=== PATIENT | male | born 1960 | race Caucasian/White ===

== ENCOUNTER 2025-07-15 09:45 | Observation (INO) ==
--- NOTE | 2025-07-15 10:49 | Emergency Department Note ---
Impression & Plan Abdominal pain, Gastroenteritis, Hypokalemia, Vomiting ED Provider Note NAME: NEHAL BROWN AGE: 64 SEX: M : 1960 ARRIVES VIA: Walk-In INFORMANT: Patient ED PROVIDER(S): Noel Noonan DO CHIEF COMPLAINT: Nausea, vomiting, and diarrhea HPI: Patient is a 64-year-old male who presents ER for symptoms that started 3 days ago. It started with nausea, vomiting, and diarrhea. Diarrhea has abated now he has persistent nausea and vomiting. He admits to diffuse myalgias and arthralgias. Denies any headache or change in vision. No chest pain or shortness of breath. No dysuria, urgency or frequency. No other exacerbating or remitting factors. is present bedside and provides additional history and notes that he has had a colon resection previously. No other belly surgeries. They are concerned for anaplasmosis [place] but no recent tick bites. ADDITIONAL HISTORY OBTAINED: Per HPI Chronic Medical/Social Conditions Affecting Care: Per HPI PAST MEDICAL HISTORY:See Below PAST SURGICAL HISTORY:See Below FAMILY HISTORY:See Below SOCIAL HISTORY:See Below HOME MEDICATIONS:See Below ALLERGIES:See Below VITALS:See Below PHYSICAL EXAMINATION: GENERAL: Sitting up in bed, alert, well appearing, well nourished, no distress, non-toxic EYE EXAM: normal conjunctiva. OROPHARYNX: no exudate, no erythema, lips, buccal mucosa, and tongue normal and mucous membranes are moist NECK: supple, no nuchal rigidity, no adenopathy, non-tender LUNGS: Clear to auscultation. Normal chest wall mechanics HEART: no murmurs, S1 normal and S2 normal ABDOMEN: abdomen soft, non-tender, normo-active bowel sounds, no masses, no rebound or guarding. BACK: Back is symmetrical on inspection and there is no deformity, no midline tenderness, no CVA tenderness. SKIN: no rashes and no bruising UPPER EXTREMITIES: upper extremities are grossly normal. LOWER EXTREMITIES: No pitting edema. NEURO EXAM: Normal sensorium, cranial nerves II-XII grossly intact, normal speech, no gross weakness of arms, no gross weakness of legs. MEDICAL DECISION MAKING: Patient is a six 4-year-old male who presents to the ER for nausea vomiting and diarrhea. IV was established and blood work was obtained. Labs show mild leukocytosis 11,000. BMP with a hyponatremia 133 and hypokalemia 2.8 likely consistent with vomiting/diarrhea. T. bili slightly up at 2.5. LFTs and lipase was unremarkable. UA with ketones suggesting dehydration anaplasmosis and Lyme was obtained and negative. CT abdomen pelvis showed no acute pathology with the exception of inflammation of the GE junction. He was given a GI cocktail. He was given IV fluids, IV Zofran, IV Reglan and IV Phenergan and still had a significant amount of nausea. Updated bedside and discussed the case with the hospitalist for further evaluation management treatment. Consults/Care Managements Discussions: Per [facility] Triage Nursing notes reviewed. Limited review of prior medical records performed Vital Signs: reviewed and remarkable for HTN Differential diagnosis: Differential diagnoses includes but is not limited to gastritis, peptic ulcer disease, GERD, gallbladder disease, pancreatitis, small bowel obstruction, appendicitis, diverticulitis, hernia, urinary tract infection, torsion, perforation, trauma, infectious. ER treatment provided: See below Diagnostics interpreted by me include EKG and cardiac monitoring as listed below: -Cardiac Monitoring: An order was placed for continuous cardiac monitoring. The monitor shows a rate of 70 with sinus rhythm. -ECG: Sinus rhythm rate of 75 Normal axis No PVCs QTc 451 -Laboratory studies:Interpreted by me as stated above in MDM and shown below. Imaging studies: Xrays: As interpreted by me:none CTs show: CT abdomen pelvis per my preliminary interpretation shows no obvious bowel obstruction CT of the pelvis per radiology shows no acute pathology Procedures:none Critical Care: None Past Med/Surg History Problem List (Updated 07/15/25 @ 16:36 by Noel Noonan DO) Vomiting (Acute) Hypokalemia (Acute) Abdominal pain (Acute) Gastroenteritis (Acute) Social History Smoking Status: Former smoker Second Hand Exposure: No; Do You Dip or Chew Tobacco: No; Hx Alcohol Use: Yes Alcohol type: beer and wine Hx Substance Use: No Bending Shed Worker Required: No Beliefs That Will Affect Care: None Current Living Situation: Spouse Feels Safe at Home: Yes Assistive Devices: Glasses and Hearing Aid - Bilateral Allergies Allergies Allergy/AdvReac Type Severity Reaction Status Date / Time Sulfa (Sulfonamide Allergy Severe Flu-Like Unverified 07/15/25 11:45 Antibiotics) symptoms Home Meds Home Medications Medication Instructions Recorded Confirmed atorvastatin 20 mg tablet 20 mg PO DAILY 07/15/25 07/15/25 duloxetine 30 mg capsule,delayed 30 mg PO DAILY 07/15/25 07/15/25 release hydrochlorothiazide 25 mg tablet 25 mg PO DAILY 07/15/25 07/15/25 losartan 50 mg tablet 50 mg PO DAILY 07/15/25 07/15/25 metoprolol succinate 50 mg 50 mg PO DAILY 07/15/25 07/15/25 tablet,extended release 24 hr spironolactone 25 mg tablet 25 mg PO DAILY 07/15/25 07/15/25 Results & Data (ED) Vital Signs Vital Signs - 24 hr 07/15/25 09:55 07/15/25 11:00 07/15/25 11:00 Temperature 36.2 C L Temperature Source Temporal Artery Scan Pulse Rate 77 86 Pulse Rate [Apical] 86 Pulse Rate from SpO2 Sensor Pulse Rhythm Regular Pulse Rhythm [Apical] Regular Respiratory Rate 18 16 16 Respiratory Effort / Characteristics Non-Labored Non-Labored Spontaneous Respiratory Depth Normal Normal Respiratory Pattern Regular Blood Pressure 181/98 H Blood Pressure [Left Arm] 143/92 H Blood Pressure Mean 125 Blood Pressure Mean [Left Arm] 109 Blood Pressure Position [Left Arm] Semi-fowlers Pulse Oximetry 100 100 100 Oxygen Delivery Method Room Air Room Air Room Air Sepsis Recent Fever Within 48 Hours No Sepsis New/Unexplained Change in Mental Status N/A Sepsis Action Taken by Nursing No Action Required 07/15/25 11:11 07/15/25 11:30 07/15/25 12:00 Temperature Temperature Source Pulse Rate 80 75 82 Pulse Rate [Apical] Pulse Rate from SpO2 Sensor 82 Pulse Rhythm Pulse Rhythm [Apical] Respiratory Rate 11 L 21 Respiratory Effort / Characteristics Respiratory Depth Respiratory Pattern Blood Pressure 171/95 H 171/93 H Blood Pressure [Left Arm] Blood Pressure Mean 134 135 Blood Pressure Mean [Left Arm] Blood Pressure Position [Left Arm] Pulse Oximetry 100 100 Oxygen Delivery Method Sepsis Recent Fever Within 48 Hours Sepsis New/Unexplained Change in Mental Status Sepsis Action Taken by Nursing 07/15/25 12:30 Temperature Temperature Source Pulse Rate 72 Pulse Rate [Apical] Pulse Rate from SpO2 Sensor 74 Pulse Rhythm Pulse Rhythm [Apical] Respiratory Rate 13 Respiratory Effort / Characteristics Respiratory Depth Respiratory Pattern Blood Pressure 166/92 H Blood Pressure [Left Arm] Blood Pressure Mean 122 Blood Pressure Mean [Left Arm] Blood Pressure Position [Left Arm] Pulse Oximetry 100 Oxygen Delivery Method Sepsis Recent Fever Within 48 Hours Sepsis New/Unexplained Change in Mental Status Sepsis Action Taken by Nursing Laboratory Data 07/15/25 10:58 07/15/25 10:58 Lab Results 07/15/25 Range/Units 10:58 WBC 11.87 H (4.8-10.8) K/ul RBC 4.45 L (4.70-6.10) M/uL Hgb 15.2 (14.0-18.0) g/dl POC Hgb 15.0 (14.0-18.0) g/dl Hct 41.0 L (42.0-52.0) % POC Hct 44 (42-52) % MCV 92.1 (80.0-100.0) fL MCH 34.2 H (25.0-34.0) pg MCHC 37.1 H (32.0-36.0) g/dL RDW Std Deviation 41.8 (36.4-46.3) fL RDW Coeff of Nery 12.3 (11.5-14.5) % Plt Count 261 (130-400) K/uL MPV 8.4 L (9.4-12.4) fL Immature Gran % (Auto) 0.5 % Neut % (Auto) 86.9 % Lymph % (Auto) 6.4 % Russell % (Auto) 5.9 % Eos % (Auto) 0.0 % Baso % (Auto) 0.3 % Neut # (Auto) 10.32 H (1.40-6.50) K/uL Lymph # (Auto) 0.76 L (1.20-3.40) K/uL Russell # (Auto) 0.70 H (0.11-0.59) K/uL Eos # (Auto) 0.00 (0.00-0.50) K/uL Baso # (Auto) 0.03 (0.00-0.20) K/uL Immature Gran # (Auto) 0.06 (0.01-0.20) K/uL POC Sodium 134 L (135-144) mmol/L Sodium 133 L (136-145) mmol/L POC Potassium 2.9 L (3.3-5.0) mmol/L Potassium 2.8 L (3.5-5.1) mmol/L POC Chloride 95 L (101-112) mmol/L Chloride 95 L (98-107) mmol/L Carbon Dioxide 25 (21-32) mmol/L POC Total CO2 22 L (24-31) mmol/L Anion Gap 13 H (3-11) POC Anion Gap 21.0 (16-25) mmol/L POC BUN 21 H (7-18) mg/dl BUN 23 (6-23) mg/dl Creatinine 1.22 (0.6-1.4) mg/dl POC Creatinine 1.2 (0.6-1.3) mg/dl Est Cr Clr Drug Dosing 63.4 ml/min eGFR 65.39 BUN/Creatinine Ratio 18.9 (10-20) Glucose 146 H (70-99(Fasting)) mg/dl POC Glucose (other) 144 H (70-99) mg/dl Calcium 9.5 (8.6-10.3) mg/dl POC Ioniz Calcium Zuhair 1.11 L (1.12-1.32) mmol/l Total Bilirubin 2.5 H (0.2-1.0) mg/dl AST 17 (13-39) U/L ALT 20 (7-52) U/L Alkaline Phosphatase 49 (34-104) U/L Total Protein 8.2 (6.0-8.3) gm/dl Albumin 4.6 (3.4-5.0) gm/dl Globulin 3.6 (2.5-4.0) gm/dl Albumin/Globulin Ratio 1.3 (0.9-2) Lipase 45 (11-82) U/L Urine Color Yellow Urine Appearance Clear (Clear) Urine pH 6.5 (4.5-7.5) Ur Specific [place] 1.025 (1.000-1.030) Urine Protein 2+ H (Negative) Urine Glucose (UA) Negative (Negative) Urine Ketones 3+ H (Negative) Urine Blood Negative (Negative) Urine Nitrite Negative (Negative) Urine Bilirubin 1+ H (Negative) Urine Urobilinogen Negative (Negative) Ur Leukocyte Esterase Negative (Negative) Urine WBC (Auto) 0-5 (0-5) /hpf Urine RBC (Auto) 0-2 (0-2) /hpf U Hyaline Cast (Auto) 3-5 H (0-2) /lpf U Epithel Cells (Auto) 0-2 (0-2) /hpf Urine Bacteria (Auto) None Seen (None Seen) Urine Mucus Present A (None Prsent) Urine Comment Anaplasma Smear See Comment Babesia Smear See Comment Lyme Disease Screen Negative (Negative) Administered Medications Sodium Chloride (Nss) 1,000 mls @ 80 mls/hr IV .[id number] AMNA Stop: 07/18/25 14:27 Last Admin: 07/15/25 15:43 Dose: 80 mls/hr Documented By: KHADAR Prochlorperazine 5 mg/ Syringe 5 mls @ 5 mls/min IV Q6H PRN PRN Reason: Nausea And Vomiting Stop: 08/14/25 16:05 Last Admin: 07/15/25 16:27 Dose: 5 mls/min Documented By: KHADAR Ondansetron HCl (Ondansetron Inj 2 Mg/Ml 2 Ml Vial) 4 mg IV Q6H PRN PRN Reason: Nausea Stop: 08/14/25 14:27 Last Admin: 07/15/25 14:35 Dose: 4 mg Documented By: REYNALDO Discontinued Medications Al Hydrox/Mg Hydrox/Simethicone (Aluminum/Magnesium Susp 30 Ml Udc) 30 ml PO NOW STA Stop: 07/15/25 12:27 Last Admin: 07/15/25 12:48 Dose: 30 ml Documented By: ZARI Sodium Chloride (Nss) 1,000 mls @ 999 mls/hr IV .Q1H1M AMNA Stop: 07/15/25 13:00 Last Infusion: 07/15/25 13:15 Dose: Infused Documented By: Admin: 07/15/25 11:58 Dose: 999 mls/hr Documented By: Infusion: 07/15/25 11:58 Dose: Infused Documented By: Admin: 07/15/25 10:59 Dose: 999 mls/hr Documented By: ZARI Promethazine HCl (Phenergan) 25 mg in 51 mls @ 204 mls/hr IV NOW STA Stop: 07/15/25 12:40 Last Infusion: 07/15/25 13:00 Dose: Infused Documented By: Admin: 07/15/25 12:45 Dose: 204 mls/hr Documented By: ZARI Potassium Chloride (K Gregg / Wtr) 10 meq in 100 mls @ 100 mls/hr IV Q1H AMNA Stop: 07/15/25 14:29 Last Admin: 07/15/25 15:47 Dose: Not Given Documented By: Infusion: 07/15/25 14:48 Dose: Infused Documented By: Admin: 07/15/25 13:08 Dose: 100 mls/hr Documented By: ZARI Ioversol (Optiray 320 100ml) 94 ml IV ONCE ONE Stop: 07/15/25 11:16 Last Admin: 07/15/25 11:16 Dose: 94 ml Documented By: NATALYA Metoclopramide HCl (Metoclopramide Hcl Inj 5 Mg/Ml 2 Ml Vial) 10 mg IV NOW STA Stop: 07/15/25 12:01 Last Admin: 07/15/25 12:04 Dose: 10 mg Documented By: ZARI Ondansetron HCl (Ondansetron Inj 2 Mg/Ml 2 Ml Vial) 4 mg IV NOW STA Stop: 07/15/25 10:47 Last Admin: 07/15/25 10:58 Dose: 4 mg Documented By: ZARI Potassium Chloride (Potassium Chloride Crtab 20 Meq Tabcr) 40 meq PO NOW STA Stop: 07/15/25 14:29 Last Admin: 07/15/25 14:47 Dose: 40 meq Documented By: KHADAR Imaging Data Radiologist's Impression: Abdomen/Pelvis CT 07/15/25 10:46 CT SCAN OF THE ABDOMEN AND PELVIS WITH IV CONTRAST CLINICAL HISTORY: Abdominal pain. COMPARISON STUDY: None. TECHNIQUE: Following the IV administration of 94 cc of Optiray 320, CT scan of the abdomen and pelvis is performed from the lung bases to the proximal femora. Images are reviewed in the axial, sagittal, and coronal planes. IV contrast was administered without complication. A dose lowering technique was utilized adhering to the principles of ALARA. CT DOSE: 1149.91 mGy.cm FINDINGS: Visualized portions of the lung bases are unremarkable. There is mild circumferential wall thickening of the distal esophagus with minimal adjacent stranding. No pneumatosis, free air or portal venous gas is present. There are no suspicious hepatic lesions. There is no biliary or pancreatic ductal dilatation. A few subcentimeter bilateral renal lesions are too small to characterize. There is no hydronephrosis. Spleen, adrenal glands and pancreas are unremarkable. Postoperative findings consistent with sigmoid resection are noted. A lobular outpouching of the sigmoid colon is likely postsurgical. This is related to the anastomosis. The prostate is surgically absent. Bladder wall thickening is noted. There is no evidence for a bowel obstruction. The appendix is normal. IMPRESSION: 1. Circumferential wall thickening of the distal esophagus with mild adjacent stranding. This favors esophagitis. 2. No bowel obstruction. No bowel wall thickening. Normal appendix. Status post sigmoid resection. 3. Bladder wall thickening. This is likely chronic although could be correlated with urinalysis to exclude cystitis. ACT 112: Negative or not required by law. Electronically signed by: Rio Denson M.D. 07/15/2025 11:57 AM Discharge Plan Visit Data Chief Complaint: Nausea Stated Complaint: SEVERE NAUSEA, DEHYDRATION ED Provider: Noel Noonan Discharge Problem: Abdominal pain, Gastroenteritis, Hypokalemia, Vomiting Patient Disposition: Admitted As Inpatient Condition: Fair Discharge Instructions Interventions: ED Discharge Assessment Last Done: 07/15/25 13:42 Discharge Problem: Abdominal pain Qualifiers: Abdominal location: unspecified location Qualified Code(s): R10.9 - Unspecified abdominal pain Vomiting Qualifiers: Vomiting type: unspecified Nausea presence: unspecified Qualified Code(s): R 11.10 - Vomiting, unspecified
[2025-07-15] MEDS: ONDANSETRON INJ 2 MG/ML 2 ML VIAL IV STA (10:58)
[2025-07-15] MEDS: SODIUM CHLORIDE 0.9% 1,000 ML IV SCH ×2 (10:59→15:43)
[2025-07-15] MEDS: OPTIRAY 320 100ml IV ONE (11:16)
[2025-07-15 11:24] LABS: Appearance Urine Clear (Clear); Glucose Urine UA Negative (Negative); Hematocrit (blood only) 41.0 % (42.0-52.0); Hemoglobin 15.2 g/dl (14.0-18.0); Immature Granulocytes # (auto) 0.06 K/uL (0.01-0.20); Immature Granulocytes % (auto) 0.5 %; Mean Corpuscular Hemoglobin 34.2 pg (25.0-34.0); Mean Corpuscular Volume 92.1 fL (80.0-100.0); Platelet Count 261 K/uL (130-400); RDW Standard Deviation 41.8 fL (36.4-46.3); Red Blood Count 4.45 M/uL (4.70-6.10); White Blood Count 11.87 K/ul (4.8-10.8)
[2025-07-15 11:41] LABS: Alanine Aminotransferase 20.0 U/L (7-52); Albumin Globulin Ratio 1.3 (0.9-2); Alkaline Phosphatase 49.0 U/L (34-104); Anion Gap 13.0 (3-11); Bilirubin,Total 2.5 mg/dl (0.2-1.0); Blood Urea Nitrogen 23.0 mg/dl (6-23); Calcium 9.5 mg/dl (8.6-10.3); Carbon Dioxide 25.0 mmol/L (21-32); Chloride 95.0 mmol/L (98-107); Creatinine Clr Calc Pharmacy 63.4 ml/min; Globulin 3.6 gm/dl (2.5-4.0); Glucose 146.0 mg/dl (70-99(Fasting)); Lipase 45.0 U/L (11-82); Potassium 2.8 mmol/L (3.5-5.1); Sodium 133.0 mmol/L (136-145); Total Protein 8.2 gm/dl (6.0-8.3)
[2025-07-15 11:46] LABS: Bacteria Urine Automated None Seen (None Seen); Epithelial Cell Urine Auto 0-2 /hpf (0-2); RBC Urine Automated 0-2 /hpf (0-2); WBC Urine Automated 0-5 /hpf (0-5)
--- NOTE | 2025-07-15 12:00 | CT Scan Report ---
CT SCAN OF THE ABDOMEN AND PELVIS WITH IV CONTRAST CLINICAL HISTORY: Abdominal pain. COMPARISON STUDY: None. TECHNIQUE: Following the IV administration of 94 cc of Optiray 320, CT scan of the abdomen and pelvi s is performed from the lung bases to the proximal femora. Images are reviewed in the axial, sagittal , and coronal planes. IV contrast was administered without complication. A dose lowering technique wa s utilized adhering to the principles of ALARA. CT DOSE: 1149.91 mGy.cm FINDINGS: Visualized portions of the lung bases are unremarkable. There is mild circumferential wall thickening of the distal esophagus with minimal adjacent stranding. No pneumatosis, free air or tatiana l venous gas is present. There are no suspicious hepatic lesions. There is no biliary or pancreatic d uctal dilatation. A few subcentimeter bilateral renal lesions are too small to characterize. There is no hydronephrosis. Spleen, adrenal glands and pancreas are unremarkable. Postoperative findings cons istent with sigmoid resection are noted. A lobular outpouching of the sigmoid colon is likely postsur gical. This is related to the anastomosis. The prostate is surgically absent. Bladder wall thickening is noted. There is no evidence for a bowel obstruction. The appendix is normal. IMPRESSION: 1. Circumferential wall thickening of the distal esophagus with mild adjacent stranding. This favors esophagitis. 2. No bowel obstruction. No bowel wall thickening. Normal appendix. Status post sigmoid resection. 3. Bladder wall thickening. This is likely chronic although could be correlated with urinalysis to ex clude cystitis. ACT 112: Negative or not required by law. Electronically signed by: Rio Denson M.D. 07/15/2025 11:57 AM
[2025-07-15] MEDS: METOCLOPRAMIDE HCL INJ 5 MG/ML 2 ML VIAL IV STA (12:04)
[2025-07-15] MEDS: PROMETHAZINE 25 MG/51 ML BAG IV STA (12:45)
[2025-07-15] MEDS: ALUMINUM/MAGNESIUM SUSP 30 ML UDC PO STA (12:48)
[2025-07-15] MEDS: POTASSIUM CHLORIDE / WTR 10 MEQ/100 ML PLCT IV SCH (13:08)
--- NOTE | 2025-07-15 14:00 | History & Physical Report ---
Date of Service July 15, 2025 Assessment & Plan (1) Gastroenteritis: Plan 64M with PMH HTN HLD who presents with N/V/D x 2 days #N/V/D -This is consistent with viral gastroenteritis -CT AP unrevealing other than esophagitis secondary to emesis -Diarrhea resolved -Anaplasmosis neg Plan -Symptomatic management with zofran -mIVF for today -Clear liquid diet for today. advance as tolerated -Follow electrolytes as below -Anticipate DC home tomorrow if feeling better #Hypokalemia -K 2.9 -Secondary to N/V, poor po intake in setting of hctz use -Given 20 mEQ K in ED Plan -Give another 40 KCl now -Hold home HCTZ -Check K and Mg in AM #HTN -Continue home aldactone and losartan, should also help with hypokalemia -COntinue home Toprol -HOlding hctz as above #HLD -COntinue statin therapy History of Present Illness Chief Complaint: N/V/D Primary Care Provider: Yvon Chauhan MD Mr. Perry is a pleasant 64M with PMH including HTN HLD who presents to ED with N/V/D. symptoms started two days ago. He was in his usual state of health prior to symptom onset. He has had persistent nausea along with multiple episodes of non bloody emesis. He had approx 5 loose non bloody bowel movements on sunday. Diarrhea has since resolved. Endorsing mild epigastric pain as well. dull and constant. No similar symptoms in the past. no sick contacts or recent travel. He is accompanied by his who feels fine. He has no other complaints. Patient denies F/C, CP, palpitations, SOB, dyspnea. His had similar symptoms a few years ago and attributed it to anaplasmosis infection. ED vitals stable Labs significant for mild leukocytosis of 11.8, K 2.9, Na 133 CT AP showing esophagitis Allergies Allergy/AdvReac Type Severity Reaction Status Date / Time Sulfa (Sulfonamide Allergy Severe Flu-Like Unverified 07/15/25 11:45 Antibiotics) symptoms Home Medications Medication Instructions Recorded Confirmed Type atorvastatin 20 mg tablet 20 mg PO DAILY 07/15/25 07/15/25 History duloxetine 30 mg capsule,delayed 30 mg PO DAILY 07/15/25 07/15/25 History release hydrochlorothiazide 25 mg tablet 25 mg PO DAILY 07/15/25 07/15/25 History losartan 50 mg tablet 50 mg PO DAILY 07/15/25 07/15/25 History metoprolol succinate 50 mg 50 mg PO DAILY 07/15/25 07/15/25 History tablet,extended release 24 hr spironolactone 25 mg tablet 25 mg PO DAILY 07/15/25 07/15/25 History Past Med/Surg History Problem List (Updated 07/15/25 @ 13:53 by Akash Cazares DO) Gastroenteritis Social History Smoking Status: Never smoker Feels Safe at Home: Yes Review of Systems Review of Systems: Constitutional: No Weight Change, No Fever, No Chills, No Night Sweats, No Fatigue, No Malaise ENT/Mouth: No Hearing Changes, No Ear Pain, No Nasal Congestion, No Sinus Pain, No Hoarseness, No sore throat, No Rhinorrhea, No Swallowing Difficulty Eyes: No Eye Pain, No Swelling, No Redness, No Foreign Body, No Discharge, No Vision Changes Cardiovascular: No Chest Pain, No SOB, No PND, No Dyspnea on Exertion, No Orthopnea, No Claudication, No Edema, No Palpitations Respiratory: No Cough, No Sputum, No Wheezing, No Smoke Exposure, No Dyspnea Gastrointestinal: As per HPI Genitourinary: No Dysmenorrhea, No DUB, No Dyspareunia, No Dysuria, No Urinary Frequency, No Hematuria, No Urinary Incontinence, No Urgency, No Flank Pain, No Urinary Flow Changes, No Hesitancy Musculoskeletal: No Arthralgias, No Myalgias, No Joint Swelling, No Joint Stiffness, No Back Pain, No Neck Pain, No Injury History Skin: No Skin Lesions, No Pruritis, No Hair Changes, No Breast/Skin Changes, No Nipple Discharge Neuro: No Weakness, No Numbness, No Paresthesias, No Loss of Consciousness, No Syncope, No Dizziness, No Headache, No Coordination Changes, No Recent Falls Psych: No Anxiety/Panic, No Depression, No Insomnia, No Personality Changes, No Delusions, No Rumination, No SI/HI/AH/VH, No Social Issues, No Memory Changes, No Violence/Abuse Hx., No Eating Concerns Heme/Lymph: No Bruising, No Bleeding, No Transfusions History, No Lymphadenopathy Endocrine: No Polyuria, No Polydipsia, No Temperature Intolerance Physical Exam Physical Exam: Vitals and labs reviewed General: Well appearing, NAD HEENT: EOMI, PERRLA Neck: Supple Cardiac: RRR no rubs gallops or murmurs Lungs: CTA no rhonchi wheezing or rales Abd: S NT ND BS positive : Defferred MSK: Full ROM. No obvious deformities Ext: No Edema cyanosis Skin: Warm, Dry Neuro: AOx3 No focal deficits. Psych: Normal Mood Results & Data Results & Data Vital Signs (Past 12 Hours) Vital Signs Temp Pulse Pulse Resp BP BP Pulse Ox 07/15/25 13:42 07/15/25 13:30 83 16 163/93 H 100 07/15/25 13:08 87 22 157/85 H 99 07/15/25 12:30 72 13 166/92 H 100 07/15/25 12:00 82 21 171/93 H 100 07/15/25 11:30 75 11 L 171/95 H 100 07/15/25 11:11 80 07/15/25 11:00 86 16 100 07/15/25 11:00 86 16 143/92 H 100 07/15/25 09:55 36.2 C L 77 18 181/98 H 100 O2 Del Method 07/15/25 13:42 Room Air 07/15/25 13:30 07/15/25 13:08 07/15/25 12:30 07/15/25 12:00 07/15/25 11:30 07/15/25 11:11 07/15/25 11:00 Room Air 07/15/25 11:00 Room Air 07/15/25 09:55 Room Air Laboratory Results Abnormal lab results 07/15/25 Range/Units 10:58 WBC 11.87 H (4.8-10.8) K/ul RBC 4.45 L (4.70-6.10) M/uL Hct 41.0 L (42.0-52.0) % MCH 34.2 H (25.0-34.0) pg MCHC 37.1 H (32.0-36.0) g/dL MPV 8.4 L (9.4-12.4) fL Neut # (Auto) 10.32 H (1.40-6.50) K/uL Lymph # (Auto) 0.76 L (1.20-3.40) K/uL Tucker # (Auto) 0.70 H (0.11-0.59) K/uL POC Sodium 134 L (135-144) mmol/L Sodium 133 L (136-145) mmol/L POC Potassium 2.9 L (3.3-5.0) mmol/L Potassium 2.8 L (3.5-5.1) mmol/L POC Chloride 95 L (101-112) mmol/L Chloride 95 L (98-107) mmol/L POC Total CO2 22 L (24-31) mmol/L Anion Gap 13 H (3-11) POC BUN 21 H (7-18) mg/dl Glucose 146 H (70-99(Fasting)) mg/dl POC Glucose (other) 144 H (70-99) mg/dl POC Ioniz Calcium [place] 1.11 L (1.12-1.32) mmol/l Total Bilirubin 2.5 H (0.2-1.0) mg/dl Urine Protein 2+ H (Negative) Urine Ketones 3+ H (Negative) Urine Bilirubin 1+ H (Negative) U Hyaline Cast (Auto) 3-5 H (0-2) /lpf Urine Mucus Present A (None Prsent) Diagnostic Findings Abdomen/Pelvis CT 07/15/25 10:46 CT SCAN OF THE ABDOMEN AND PELVIS WITH IV CONTRAST CLINICAL HISTORY: Abdominal pain. COMPARISON STUDY: None. TECHNIQUE: Following the IV administration of 94 cc of Optiray 320, CT scan of the abdomen and pelvis is performed from the lung bases to the proximal femora. Images are reviewed in the axial, sagittal, and coronal planes. IV contrast was administered without complication. A dose lowering technique was utilized adhering to the principles of ALARA. CT DOSE: 1149.91 mGy.cm FINDINGS: Visualized portions of the lung bases are unremarkable. There is mild circumferential wall thickening of the distal esophagus with minimal adjacent stranding. No pneumatosis, free air or portal venous gas is present. There are no suspicious hepatic lesions. There is no biliary or pancreatic ductal dilatation. A few subcentimeter bilateral renal lesions are too small to characterize. There is no hydronephrosis. Spleen, adrenal glands and pancreas are unremarkable. Postoperative findings consistent with sigmoid resection are noted. A lobular outpouching of the sigmoid colon is likely postsurgical. This is related to the anastomosis. The prostate is surgically absent. Bladder wall thickening is noted. There is no evidence for a bowel obstruction. The appendix is normal. IMPRESSION: 1. Circumferential wall thickening of the distal esophagus with mild adjacent stranding. This favors esophagitis. 2. No bowel obstruction. No bowel wall thickening. Normal appendix. Status post sigmoid resection. 3. Bladder wall thickening. This is likely chronic although could be correlated with urinalysis to exclude cystitis. ACT 112: Negative or not required by law. Electronically signed by: Rio Denson M.D. 07/15/2025 11:57 AM Code Status & VTE Plan VTE Prophylaxis Plan VTE Prophylaxis will be ordered: Yes
[2025-07-15] MEDS ORDERED: ALUMINUM/MAGNESIUM SUSP 30 ML UDC PO PRN (14:28)
[2025-07-15] MEDS ORDERED: MELATONIN 3 MG TAB PO PRN (14:28)
[2025-07-15] MEDS ORDERED: ACETAMINOPHEN 325 MG TAB PO PRN (14:28)
[2025-07-15] MEDS: ONDANSETRON INJ 2 MG/ML 2 ML VIAL IV PRN (14:35)
[2025-07-15] MEDS: POTASSIUM CHLORIDE CRTAB 20 MEQ TABCR PO STA (14:47)
[2025-07-15] MEDS: PROCHLORPERAZINE 5 MG in SYRINGE 4 ML IV PRN (16:27)
[2025-07-15] MEDS ORDERED: HEPARIN SOD 5,000 UNIT/0.5 ML VIAL SQ SCH (21:00)
[2025-07-16 06:16] LABS: Hematocrit (blood only) 34.8 % (42.0-52.0); Hemoglobin 12.7 g/dl (14.0-18.0); Immature Granulocytes # (auto) 0.03 K/uL (0.01-0.20); Immature Granulocytes % (auto) 0.4 %; Mean Corpuscular Hemoglobin 34.2 pg (25.0-34.0); Mean Corpuscular Volume 93.8 fL (80.0-100.0); Platelet Count 191 K/uL (130-400); RDW Standard Deviation 41.9 fL (36.4-46.3); Red Blood Count 3.71 M/uL (4.70-6.10); White Blood Count 7.74 K/ul (4.8-10.8)
[2025-07-16 06:34] LABS: Anion Gap 5.0 (3-11); Blood Urea Nitrogen 15.0 mg/dl (6-23); Calcium 8.0 mg/dl (8.6-10.3); Carbon Dioxide 25.0 mmol/L (21-32); Chloride 107.0 mmol/L (98-107); Creatinine Clr Calc Pharmacy 70.4 ml/min; Glucose 123.0 mg/dl (70-99(Fasting)); Magnesium 2.2 mg/dl (1.7-2.4); Potassium 3.3 mmol/L (3.5-5.1); Sodium 137.0 mmol/L (136-145)
[2025-07-16] MEDS: POTASSIUM CHLORIDE CRTAB 20 MEQ TABCR PO STA (08:07)
[2025-07-16 08:34] VITALS: RESP 17
[2025-07-16] MEDS ORDERED: SPIRONOLACTONE 25 MG TAB PO SCH (09:00)
[2025-07-16] MEDS: ATORVASTATIN 20 MG TAB PO SCH (09:46)
[2025-07-16] MEDS: METOPROLOL SUCC 50MG EXT REL TAB PO SCH (09:46)
[2025-07-16] MEDS: LOSARTAN POTASSIUM 50 MG TAB PO SCH (09:46)
[2025-07-16 11:37] VITALS: TEMP 98.2; O2SAT 99
--- NOTE | 2025-07-16 13:28 | Discharge Summary ---
Discharge Summary Date of Service July 16, 2025 Principal Dx & Hospital Course #1 = Principal Diagnosis (1) Gastroenteritis: (2) Hypokalemia: (3) Esophagitis: Plan This is a 64M with PMH HTN HLD who presents with N/V/D x 2 days #N/V/D -> resolved -Consistent with viral gastroenteritis -CT AP unrevealing other than esophagitis secondary to emesis - Tolerating regular diet - Tick borne serology negative, Babesia DNR pending - Discharging on Protonix 40mg daily for esophagitis, sending with PRN Phenergan for nausea (avoiding Zofran given qtc 451, already on SNRI) #Hypokalemia -K 2.9 initially -Secondary to N/V, poor po intake in setting of hctz use -Repleted with IV and PO supplementation #HTN - Continue home losartan and Toprol - Hold Spironolactone and HCTZ in setting of lyte derangement and poor PO inta ke. Instructed to discuss resuming at PCP follow up #HLD -Continue statin therapy Patient hemodynamically stable with resolved GI symptoms at time of discharge home. All questions answered. Care coordinated with Dr. Garcia Notes For Next Care Provider viral gastroenteritis, esophagitis likely 2/2 vomiting Medication Changes From Visit PPI for esophagitis, PRN phenergan for nausea Admission HPI Per Admitting Provider Mr. Perry is a pleasant 64M with PMH including HTN HLD who presents to ED with N/V/D. symptoms started two days ago. He was in his usual state of health prior to symptom onset. He has had persistent nausea along with multiple episodes of non bloody emesis. He had approx 5 loose non bloody bowel movements on sunday. Diarrhea has since resolved. Endorsing mild epigastric pain as well. dull and constant. No similar symptoms in the past. no sick contacts or recent travel. He is accompanied by his who feels fine. He has no other complaints. Patient denies F/C, CP, palpitations, SOB, dyspnea. His had similar symptoms a few years ago and attributed it to anaplasmosis infection. ED vitals stable Labs significant for mild leukocytosis of 11.8, K 2.9, Na 133 CT AP showing esophagitis Admission Exam Per Admitting Provider Vitals and labs reviewed General: Well appearing, NAD HEENT: EOMI, PERRLA Neck: Supple Cardiac: RRR no rubs gallops or murmurs Lungs: CTA no rhonchi wheezing or rales Abd: S NT ND BS positive : Defferred MSK: Full ROM. No obvious deformities Ext: No Edema cyanosis Skin: Warm, Dry Neuro: AOx3 No focal deficits. Psych: Normal Mood Discharge Exam Gen: WD/WN, NAD, sitting in bedside chair, A&Ox3 HEENT: Normocephalic, atraumatic, mucous membranes moist Lung: Clear to Auscultation bilaterally Heart: Regular rate, regular rhythm Abdomen: Soft, NT, ND +BS x 4 Extremities: no edema Skin: Warm, no rash Updated Medication List Medication Instructions Recorded Confirmed Type atorvastatin 20 mg tablet 20 mg PO DAILY 07/15/25 07/15/25 History duloxetine 30 mg capsule,delayed 30 mg PO DAILY 07/15/25 07/15/25 History release hydrochlorothiazide 25 mg tablet 25 mg PO DAILY 07/15/25 07/15/25 History losartan 50 mg tablet 50 mg PO DAILY 07/15/25 07/15/25 History metoprolol succinate 50 mg 50 mg PO DAILY 07/15/25 07/15/25 History tablet,extended release 24 hr spironolactone 25 mg tablet 25 mg PO DAILY 07/15/25 07/15/25 History pantoprazole 40 mg tablet,delayed 40 mg PO QAM #30 tabs 07/16/25 Rx release promethazine 12.5 mg tablet 12.5 mg PO TID PRN nausea and 07/16/25 Rx vomiting #5 tabs Hospital Stay Data Consultations 07/15/25 12:35 ED Decision to Admit Stat Diagnostic Imagining Performed 07/15/25 10:46 CT abd pelvis IV con only Stat Pending Results Patient Have Any Pending Studies at Discharge: No Discharge Instructions Given to Patient (Per Discharging Provider) MEDICATION CHANGES: NEW: Starting Protonix 40mg daily for esophagitis finding on CT abd/pelvis Phenergan as needed for nausea - this can make you sleepy so please only take when resting at home HOLD: Spironolactone and HCTZ until PCP follow up - held for electrolyte abnormalities, poor PO intake PENDING TEST RESULTS: Initial tick serology negative, however Babesia DNR is still pending - will call if positive RECOMMENDATIONS FOR FOLLOW-UP: Follow up with PCP as scheduled. Continue medication regimen as scheduled aside from changes noted above. OTHER INSTRUCTIONS: Seek medical attention if you have: * temperature above 101 * chest pain or trouble breathing * abdominal pain, nausea, vomiting * diarrhea, dark stools or bloody stools * any unanswered questions or concerns Call 911 if symptoms are severe. Please take good care of yourself. Call if you have any questions or problems. You can reach a [facility] hospitalist on duty at [facility] 24 hours a day by calling [phone]. Total Time Total Time Spent Total Time Spent (In Minutes): 40 Supervising Physician Co-Signing Physician Notes Patient is seen and examined on day of discharge. Nausea, vomiting resolved. No recurrence of diarrhea. Denies any chest pain, dyspnea, dizziness. Tolerating current diet. On exam patient is moderately built and nourished, no apparent distress, normocephalic atraumatic, EOMI, normal breath sounds, clear to auscultation, S1-S2, no murmur, no pedal edema, abdomen soft, nontender, normal bowel sounds, alert, awake, oriented, grossly no focal deficits. Patient is currently being managed for suspected viral gastroenteritis, esophagitis likely secondary to nausea and vomiting. Reviewed CT imaging. Advance diet as tolerated. Replace electrolytes as needed. Started on PPI. Advised to follow- up with GI as outpatient for possible EGD. Patient admits that he is not taking his antihypertensives for the last 3 to 4 days. Advised to hold diuretics for now and monitor blood pressure regularly. Needs follow-up with PCP in 1 week. Also advised patient to get his Well monitor and examined for possible co ntamination. I personally interviewed and examined the patient at bedside. I have reviewed the advanced practitioner's documentation on the date of service referred in note and agree with plan. Patient's care is coordinated with Kiera Medeiros PA-C. Please refer to the documentation above for details of patient's presentation and for discussion of other issues. I spent a total [id number] coordinating, documenting, and providing care for this patient excluding time spent in the performance of separately billed services or time spent by another provider/QHP.
[2025-07-16 13:55] VITALS: BP 148/79; PULSE 75
--- NOTE | 2025-07-17 14:46 | Electrocardiogram Report ---
Test Reason : Blood Pressure : */* mmHG Vent. Rate : 63 BPM Atrial Rate : 63 BPM P-R Int : 170 ms QRS Dur : 90 ms QT Int : 420 ms P-R-T Axes : 60 47 62 degrees QTcB Int : 429 ms Normal sinus rhythm with sinus arrhythmia Normal ECG When compared with ECG of 15-Jul-2025 10:52, (unconfirmed) No significant change was found Confirmed by Von Llanes ([id number]) on 07/17/2025 2:46:31 PM Referred By: REFERRED SELF Confirmed By: Von Llanes
--- NOTE | 2025-07-18 07:42 | Electrocardiogram Report ---
Test Reason : Blood Pressure : */* mmHG Vent. Rate : 75 BPM Atrial Rate : 75 BPM P-R Int : 156 ms QRS Dur : 100 ms QT Int : 404 ms P-R-T Axes : 46 44 51 degrees QTcB Int : 451 ms Normal sinus rhythm with sinus arrhythmia Incomplete right bundle branch block Borderline ECG No previous ECGs available Confirmed by Von Llanes ([id number]) on 07/18/2025 7:42:20 AM Referred By: REFERRED SELF Confirmed By: Von Llanes
== END 2025-07-16 14:35 | disposition home or self-care (01) ==
LOC: 2N 09:45 → ED 09:45 → SUATTDRO 13:04 → 2N 13:42